=== PATIENT | female | born 1985 | race Asian ===

== ENCOUNTER → 2018-04-25 | Outpatient (CLI) | payer SELFPAY ==
--- NOTE | 2018-04-25 15:55 | KCIC ---
Abdominal ultrasound, 04/25/2018: HISTORY: Abdominal pain The gallbladder is within normal limits in size. There is no sonographic evidence of cholelithiasis. The gallbladder wall is not thickened. The common hepatic duct measures 4 mm. There is no evidence of a hepatic mass or bile duct dilatation. The spleen is of normal size. The pancreas was obscured by overlying bowel. No renal abnormality is detected. The visualized portions of the aorta and inferior vena cava are unremarkable. IMPRESSION: No significant abnormality is detected. Electronically signed by: Darvin Zamorano MD (04/25/2018 3:51 PM) [facility]
== END | disposition home or self-care (01) ==
LOC: KCIC US 13:41
DX: R10.84 Generalized abdominal pain (principal)
CPT/HCPCS: 76700